=== PATIENT | male | born 1960 | race Caucasian/White ===

== ENCOUNTER 2016-10-09 23:15 | Inpatient (IN) | payer MEDICARE ==
[~2016-10-09] VITALS: Ht 180.3 cm; Wt 92.4 kg
[~2016-10-09 23:15] MED LIST: ALPR1TAB5 PO; ASPI-650 PO; AZIT500T77 PO; CEFD300C37 PO; CHOL100011 PO; CLOP75TA22 PO; DOCU250C2 PO; DOXY100C2 PO; FERR325C PO; FLORINEF PO; FLUT9.9S NAS; FURO-92 PO; FURO40TA6 PO; HCTZ PO; HYDR-3341 PO; HYDR10TA11 PO; HYDROCORTISONE CREAM; ISOS30TA PO; ISOS30TA8 PO; LISI-167 PO; LISI-170 PO; METH-356 PO; METO-95 PO; NITR0.4T PO; OSEL75CA PO; OXYGEN INH; PANT20TA3 PO; POLYETHYLENE GLYCOL PO; POTA20TA14 PO; POTA20TA6 PO; RANI300T PO; RANO500T2 PO; ROSU10TA PO; SENN8.6C2 PO; SPIR25TA3 PO; TEST100V IM; TRAZ100T15 PO; VENL100T PO; VENL150C PO; VENL75CA PO
[2016-10-10 00:30] VITALS: BP 111/62
[2016-10-10] MEDS ORDERED: LISI10TA2 PO (02:30)
[2016-10-10] MEDS ORDERED: SPIR25TA3 PO (02:30)
[2016-10-10] MEDS ORDERED: PLEASE ENTER HEIGHT AND WEIGHT MC SCH (02:30)
[2016-10-10] MEDS ORDERED: BISACODYL 10 MG SUPP PR PRN (02:30)
[2016-10-10] MEDS: HEPARIN 5,000 UNITS/ML, 1ML SQ SCH ×3 (02:30→17:27)
[2016-10-10] MEDS ORDERED: LABETALOL 5MG/ML 40ML VIAL IV PRN (02:30)
[2016-10-10] MEDS ORDERED: ASPI-496 PO (02:30)
[2016-10-10] MEDS ORDERED: OMEP20CA14 PO (02:30)
[2016-10-10] MEDS ORDERED: POLYETHYLENE GLYCOL 17 GM PACKET PO PRN (02:30)
[2016-10-10] MEDS ORDERED: ACETAMINOPHEN 325 MG TABLET PO PRN (02:30)
[2016-10-10] MEDS ORDERED: ATOR20TA9 PO (02:30)
[2016-10-10] MEDS ORDERED: DOCUSATE 100 MG CAPSULE PO PRN (02:30)
[2016-10-10] MEDS ORDERED: ALPR2TAB4 PO (02:30)
[2016-10-10] MEDS ORDERED: DOXY100V9 PO (02:30)
[2016-10-10] MEDS ORDERED: TRAZODONE 50MG TABLET PO PRN (02:30)
[2016-10-10] MEDS ORDERED: LIDO700A5 TD (04:20)
[2016-10-10] MEDS ORDERED: METH5TAB2 PO (04:20)
[2016-10-10 04:43] LABS: BLOOD UREA NITROGEN 10 mg/dL (7-18)
[2016-10-10 04:50] LABS: ASPARTATE AMINO TRANSFERASE 18 U/L (15-37)
[2016-10-10 04:51] LABS: IS PT STATUS REG ER OR PRE ER? NO
[2016-10-10] MEDS: ALBUTEROL SULFATE 2.5 MG/3 ML NPPB SCH ×4 (05:00→19:43)
[2016-10-10] MEDS ORDERED: VANCOMYCIN PER PHARMACY MC PRN (06:00)
[2016-10-10] MEDS ORDERED: PHARMACOKINETIC MONITORING MC PRN (06:30)
[2016-10-10] MEDS ORDERED: VANCOMYCIN 1,500 MG in SODIUM CHLORIDE 0.9% 250 ML IV ONE (07:00)
[2016-10-10 07:30] VITALS: BP 110/65
[2016-10-10 07:57] LABS: IS PT STATUS REG ER OR PRE ER? NO
[2016-10-10] MEDS: FUROSEMIDE 20 MG/2 ML IV SCH ×2 (09:34→17:21)
[2016-10-10] MEDS: LISINOPRIL 10 MG TABLET PO SCH (09:36)
[2016-10-10] MEDS: ASPIRIN 81 MG TABLET EC PO SCH (09:36)
[2016-10-10] MEDS: VENLAFAXINE 75 MG CAP ER PO SCH (09:36)
[2016-10-10] MEDS: METOPROLOL SUCCINATE 100 MG TAB.ER.24H PO SCH (09:36)
[2016-10-10] MEDS: CLOPIDOGREL 75 MG TABLET PO SCH (09:36)
[2016-10-10] MEDS: SPIRONOLACTONE 25 MG TABLET PO SCH (09:36)
[2016-10-10] MEDS: ISOSORBIDE MONONITRATE ER 30 MG TABLET PO SCH (09:37)
[2016-10-10] MEDS: RANOLAZINE 500 MG TAB.ER.12H PO SCH ×2 (09:37→21:07)
[2016-10-10] MEDS: CEFEPIME 2 GM in DEXTROSE 5% 100 ML IV SCH ×2 (09:38→17:27)
[2016-10-10] MEDS ORDERED: PRAZ2CAP2 PO (11:13)
[2016-10-10 14:26] VITALS: BP 129/74
[2016-10-10] MEDS ORDERED: SYMBICORT INH PRN (14:30)
[2016-10-10] MEDS: FLUTICASONE NASAL SPRAY 16GM NAS PRN ×2 (14:47→21:07)
[2016-10-10 19:59] VITALS: BP 135/71
[2016-10-10] MEDS ORDERED: LIDODERM 5% PATCH TD SCH (20:00)
[2016-10-10] MEDS ORDERED: TRAZODONE 100MG TABLET PO SCH (21:00)
[2016-10-10] MEDS ORDERED: METHADONE 10 MG TABLET PO SCH (21:30)
[2016-10-10] MEDS ORDERED: ALPRazolam 1MG TABLET PO SCH (21:30)
[2016-10-11] MEDS: HEPARIN 5,000 UNITS/ML, 1ML SQ SCH ×2 (01:26→09:31)
[2016-10-11] MEDS: CEFEPIME 2 GM in DEXTROSE 5% 100 ML IV SCH ×2 (01:30→09:31)
[2016-10-11 01:55] VITALS: BP 124/76
[2016-10-11 05:33] LABS: BLOOD UREA NITROGEN 10 mg/dL (7-18)
[2016-10-11] MEDS ORDERED: VANCOMYCIN 1,900 MG in SODIUM CHLORIDE 0.9% 250 ML IV SCH (06:00)
[2016-10-11] MEDS: ALBUTEROL SULFATE 2.5 MG/3 ML NPPB SCH ×2 (06:50→15:00)
[2016-10-11 07:25] VITALS: BP 98/61
[2016-10-11 09:11] VITALS: BP 124/67
[2016-10-11] MEDS: FUROSEMIDE 20 MG/2 ML IV SCH (09:12)
[2016-10-11] MEDS: SPIRONOLACTONE 25 MG TABLET PO SCH (09:16)
[2016-10-11] MEDS: ASPIRIN 81 MG TABLET EC PO SCH (09:21)
[2016-10-11] MEDS: VENLAFAXINE 75 MG CAP ER PO SCH (09:21)
[2016-10-11] MEDS: RANOLAZINE 500 MG TAB.ER.12H PO SCH (09:22)
[2016-10-11] MEDS: ISOSORBIDE MONONITRATE ER 30 MG TABLET PO SCH (09:22)
[2016-10-11] MEDS: LISINOPRIL 10 MG TABLET PO SCH (09:22)
[2016-10-11] MEDS: CLOPIDOGREL 75 MG TABLET PO SCH (09:22)
[2016-10-11] MEDS: METOPROLOL SUCCINATE 100 MG TAB.ER.24H PO SCH (09:23)
[2016-10-11 13:35] VITALS: BP 97/59
[2016-10-11] MEDS ORDERED: ALBU2.5V NPPB (13:47)
[2016-10-11] MEDS ORDERED: LEVO500T8 PO (13:55)
== END 2016-10-11 15:42 | disposition home or self-care (01) | DRG 190 ==
LOC: 5SO 10-10 00:43 → DCLOUNGE 10-11 15:19
PROVIDERS: ADMIT Internal Medicine; ATTEND Internal Medicine
DX: J44.0 Chronic obstructive pulmonary disease with (acute) lower respiratory infection (principal); J18.9 Pneumonia, unspecified organism; H33.20 Serous retinal detachment, unspecified eye; J81.1 Chronic pulmonary edema; E78.5 Hyperlipidemia, unspecified; I25.5 Ischemic cardiomyopathy; H26.9 Unspecified cataract; I25.10 Atherosclerotic heart disease of native coronary artery without angina pectoris; I25.2 Old myocardial infarction; Z87.891 Personal history of nicotine dependence; Z90.81 Acquired absence of spleen; Z95.5 Presence of coronary angioplasty implant and graft; Z99.81 Dependence on supplemental oxygen; Z90.49 Acquired absence of other specified parts of digestive tract; Z79.02 Long term (current) use of antithrombotics/antiplatelets; Z79.899 Other long term (current) drug therapy; Z79.82 Long term (current) use of aspirin; Z82.49 Family history of ischemic heart disease and other diseases of the circulatory system; Z87.820 Personal history of traumatic brain injury; Z88.0 Allergy status to penicillin; Z88.2 Allergy status to sulfonamides; Z88.5 Allergy status to narcotic agent
CPT/HCPCS: 36415; 71010; 80048; 80053; 81003; 83735; 83880; 84439; 84443; 84484; 85025; 85610; 93005; 94640; J1644; J3370; J7613; J1940; J7050

== ENCOUNTER 2019-01-25 13:08 | Emergency (ER) | payer MEDICARE ==
[~2019-01-25] VITALS: Ht 180.3 cm; Wt 114.7 kg
[2019-01-25 16:24] VITALS: BP 158/92
== END 2019-01-25 16:39 | disposition home or self-care (01) ==
LOC: ED 16:15
DX: J41.1 Mucopurulent chronic bronchitis (principal); I10 Essential (primary) hypertension; I25.2 Old myocardial infarction; I25.10 Atherosclerotic heart disease of native coronary artery without angina pectoris; Z87.891 Personal history of nicotine dependence; Z90.81 Acquired absence of spleen
CPT/HCPCS: 36415; 71045; 80053; 83880; 84484; 85025; 85610; 93005; 99284; J7512

== ENCOUNTER 2019-02-23 04:25 | Inpatient (IN) | payer MEDICARE ==
[~2019-02-23] VITALS: Ht 180.3 cm; Wt 116.2 kg
[~2019-02-23 04:25] MED LIST changes: +ALBU2.5V NPPB; +ALPR2TAB4 PO; +ASPI-496 PO; +ATOR20TA37 PO; +AZIT500T5 PO; -AZIT500T77 PO; -CLOP75TA22 PO; +CLOP75TA52 PO; -DOCU250C2 PO; +DOCU250C9 PO; +DOXY100V9 PO; +HYDR-3059 PO; -HYDR10TA11 PO; +LEVO500T8 PO; +LIDO700A5 TD; +LISI10TA2 PO; -METH-356 PO; +METH10TA2 PO; +METH5TAB2 PO; -NITR0.4T PO; +NITR0.4T41 PO; +OMEP20CA14 PO; -OSEL75CA PO; +OSEL75CA26 PO; +PRAZ2CAP2 PO; -ROSU10TA PO; +ROSU10TA2 PO; -SPIR25TA3 PO; +SPIR25TA5 PO; +TRAZ-137 PO; -TRAZ100T15 PO
--- NOTE | 2019-02-23 04:37 | NUR ---
PT C/O CHEST PRESSURE THAT WOKE HIM FROM SLEEP. PT WAS SEEN AT HIS [facility] YESTERDAY AND WAS GIVEN A NEW INHALER AND PREDNISONE. PT REPORTS PAIN RELIEVED WITH NITRO. Addendum: 02/23/19 at 0641 by ALYCIA Amendment undone in EDM - 02/23/19 at 0641 by ALYCIA MD NOTIFIED.
[2019-02-23] MEDS ORDERED: ONDANSETRON 2MG/ML, 2ML ONE (04:48)
[2019-02-23] MEDS ORDERED: NITROGLYCERIN OINT 2%, 1GM TP ONE ×2 (04:48→05:00)
[2019-02-23] MEDS ORDERED: MORPHINE SULFATE 4 MG/ML, 1ML ONE ×2 (04:49→05:40)
[2019-02-23] MEDS: MORPHINE SULFATE 4 MG/ML, 1ML IVPush PRN ×2 (04:56→05:45)
[2019-02-23] MEDS ORDERED: hydrALAzine 20 MG/ML, 1ML IV ONE (05:00)
[2019-02-23] MEDS ORDERED: SODIUM CHLORIDE FLUSH 10ML SYR IVF ONE (05:00)
[2019-02-23] MEDS ORDERED: ONDANSETRON 2MG/ML, 2ML IVPush ONE (05:00)
--- NOTE | 2019-02-23 05:25 | NUR ---
AT BEDSIDE TO ASSESS PATIENT.
[2019-02-23 05:34] LABS: BASOPHILS % (AUTO) 0 % (0-1); EOSINOPHILS # (AUTO) 0.17 x10^3/uL (0-0.4); EOSINOPHILS % (AUTO) 1 % (1-7); LYMPHOCYTES # (AUTO) 1.77 x10^3/uL (1-3.4); LYMPHOCYTES % (AUTO) 11 % (22-44); MD NO; MEAN CORPUSCULAR HEMOGLOBIN 29.4 pg (27.5-34.5); MEAN CORPUSCULAR VOLUME 91.9 fL (81-97); MEAN PLATELET VOLUME 9.7 fL (7.4-10.4); MONOCYTES # (AUTO) 0.37 x10^3/uL (0.2-0.8); MONOCYTES % (AUTO) 2 % (2-9); NEUTROPHILS # (AUTO) 14.05 x10^3/uL (1.8-6.8); NEUTROPHILS % (AUTO) 86 % (42-75); PLATELET COUNT 360 x10^3/uL (130-400); RED BLOOD COUNT 4.72 x10^6/uL (4.38-5.82); RED CELL DISTRIBUTION WIDTH 17.8 % (9.4-14.8)
[2019-02-23 05:48] LABS: ALANINE AMINOTRANSFERASE 38 U/L (12-78); ALBUMIN 3.3 g/dL (3.4-5.0); ANION GAP 10 mmol/L (5-15); CALCIUM 8.8 mg/dL (8.5-10.1); CHLORIDE 100 mmol/L (98-107); CREATININE 1.66 mg/dL (0.7-1.3)
[2019-02-23 05:52] LABS: ALKALINE PHOSPHATASE 94 U/L (45-117); BILIRUBIN,TOTAL 0.3 mg/dL (0.2-1.0); TOTAL PROTEIN 7.5 g/dL (6.4-8.2); TROPONIN I < 0.015 ng/mL (0.000-0.045)
[2019-02-23 05:57] LABS: ACETONE, SERUM Negative (Negative)
[2019-02-23 05:58] LABS: INTERNATIONAL NORMALIZED RATIO 0.9 (0.93-1.1); PROTHROMBIN TIME 9.5 Seconds (9.6-11.5)
[2019-02-23] MEDS ORDERED: SODIUM CHLORIDE 0.9% 1,000ML IVBOLUS ONE ×2 (06:00→07:30)
[2019-02-23] MEDS ORDERED: INSULIN REGULAR 100 UNITS/ML, 3ML VIAL SQ-INSULIN ONE (06:00)
[2019-02-23] MEDS ORDERED: MAGNESIUM SULFATE PMX 2GM/50ML 50 ML IV ONE ×2 (06:00→13:00)
[2019-02-23] MEDS ORDERED: MAGNESIUM SULFATE PMX 2GM/50ML 50 ML ONE (06:10)
[2019-02-23] MEDS ORDERED: INSULIN SINGLE DOSE, ER SQ-INSULIN ONE (06:11)
--- NOTE | 2019-02-23 06:16 | NUR ---
PT TO CT SCAN
[2019-02-23] MEDS ORDERED: OMNIPAQUE 350 MG/ML, 100ML BOTTLE ONE (06:27)
[2019-02-23 06:34] LABS: HEMOGLOBIN A1C 7.1 % (4.2-6.3)
--- NOTE | 2019-02-23 06:40 | NUR ---
PT RETURNED FROM CT SCAN. C/O INCREASE IN SHARP LEFT SIDED CHEST PAIN. Addendum: 02/23/19 at 0641 by ALYCIA MD NOTIFIED.
--- NOTE | 2019-02-23 06:59 | NUR ---
REPORT GIVEN TO KYM ABAD
[2019-02-23] MEDS ORDERED: CEFTRIAXONE PMX 1GM/50ML 50 ML ONE (07:09)
--- NOTE | 2019-02-23 07:23 | NUR ---
REPORT FROM AMADO MEJÍA. PT RESTING, NAD. BP IMPROVED, VS UPDATED IN COMPUTER. CALL LIGHT WITHIN REACH.
[2019-02-23] MEDS ORDERED: CEFTRIAXONE 1,000 MG in DEXTROSE 5% 50 ML IVPB ONE (07:30)
[2019-02-23] MEDS ORDERED: CEFTRIAXONE PMX 1GM/50ML 50 ML IV ONE (07:30)
--- NOTE | 2019-02-23 08:06 | NUR ---
REPORT TO SHANA MEJÍA, PT READY FOR TRANSPORT TO FLOOR.
[2019-02-23 08:44] VITALS: BP 142/82
[2019-02-23] MEDS ORDERED: PRED20TA PO (10:14)
[2019-02-23] MEDS ORDERED: OMEP20TA9 PO (10:16)
[2019-02-23] MEDS ORDERED: TRAZ-96 PO (10:18)
[2019-02-23] MEDS ORDERED: TIOT18CA INH (10:18)
[2019-02-23] MEDS ORDERED: VENL75CA PO (10:18)
[2019-02-23] MEDS ORDERED: HEPARIN 5,000 UNITS/ML, 1ML SQ SCH (13:00)
[2019-02-23] MEDS ORDERED: hydrALAzine 20 MG/ML, 1ML IVPush PRN (13:00)
[2019-02-23] MEDS ORDERED: TEMPLATE NON-FORMULARY MED. ([Oxygen] 3 L) INH SCH (13:00)
[2019-02-23] MEDS ORDERED: ONDANSETRON 2MG/ML, 2ML IVPush PRN (13:00)
[2019-02-23] MEDS ORDERED: NITROGLYCERIN SINGLE TAB 0.4 MG SL SCH (13:00)
[2019-02-23] MEDS ORDERED: TRAZODONE 50MG TABLET PO SCH (13:00)
[2019-02-23] MEDS ORDERED: VENLAFAXINE 75 MG CAP ER PO SCH (13:00)
[2019-02-23] MEDS ORDERED: PROMETHAZINE 25 MG/ML, 1ML IM PRN (13:00)
[2019-02-23] MEDS ORDERED: FLUTICASONE NASAL SPRAY 16GM NAS PRN ×2 (13:00→17:29)
[2019-02-23] MEDS ORDERED: POLYETHYLENE GLYCOL 17 GM PACKET PO PRN (13:00)
[2019-02-23] MEDS ORDERED: DOCUSATE 100 MG CAPSULE PO PRN (13:00)
[2019-02-23] MEDS ORDERED: BISACODYL 10 MG SUPP PR PRN (13:00)
[2019-02-23] MEDS ORDERED: ONDANSETRON ODT 4 MG PO PRN (13:00)
[2019-02-23] MEDS ORDERED: ATORVASTATIN 20 MG TABLET PO SCH (13:00)
[2019-02-23] MEDS ORDERED: ACETAMINOPHEN 325 MG TABLET PO PRN (13:00)
[2019-02-23] MEDS ORDERED: ALBUTEROL/IPRATROPIUM 2.5MG/0.5MG, 3 ML ONE (13:51)
[2019-02-23 13:55] LABS: FREE T4 (FREE THYROXINE) 0.73 ng/dL (0.76-1.46)
[2019-02-23] MEDS: SPIRONOLACTONE 25 MG TABLET PO SCH (14:32)
[2019-02-23] MEDS: CLOPIDOGREL 75 MG TABLET PO SCH (14:32)
[2019-02-23] MEDS: methylPREDNISolone SOD SUCC 125 MG/2 ML IVPush SCH ×2 (14:32→20:42)
[2019-02-23] MEDS: METOPROLOL SUCCINATE 100 MG TAB.ER.24H PO SCH (14:32)
[2019-02-23] MEDS: LISINOPRIL 10 MG TABLET PO SCH (14:32)
[2019-02-23] MEDS: DOXYCYCLINE 100MG TABLET PO SCH (14:32)
[2019-02-23] MEDS: ASPIRIN 81 MG TABLET EC PO SCH (14:32)
[2019-02-23] MEDS: ISOSORBIDE MONONITRATE ER 30 MG TABLET PO SCH (14:32)
[2019-02-23 14:57] VITALS: BP 133/75
[2019-02-23 15:01] LABS: HEMOGLOBIN A1C 7.1 % (4.2-6.3)
[2019-02-23] MEDS ORDERED: HEPARIN 25,000 UNITS/500ML PMX 500 ML IV PRN (16:00)
[2019-02-23] MEDS ORDERED: HEPARIN 5,000 UNITS/ML, 1ML IV ONE (16:00)
[2019-02-23] MEDS ORDERED: HEPARIN 5,000 UNITS/ML, 1ML IV PRN (16:00)
[2019-02-23 18:32] LABS: MICROSCOPIC NOT IND
[2019-02-23 18:36] LABS: CULTURE INDICATED? NO
[2019-02-23] MEDS: ALBUTEROL/IPRATROPIUM 2.5MG/0.5MG, 3 ML NPPB SCH (19:25)
[2019-02-23 19:32] VITALS: BP 117/71
[2019-02-23] MEDS: VENLAFAXINE 75MG TABLET PO SCH (20:42)
[2019-02-23] MEDS: TRAZODONE 50MG TABLET PO SCH (20:43)
[2019-02-23] MEDS: ALPRAZOLAM 2 MG PO SCH (20:43)
[2019-02-23] MEDS: PANTOPROZOLE 40MG TABLET PO SCH (20:43)
[2019-02-23] MEDS: RANOLAZINE 500 MG TAB.ER.12H PO SCH (20:43)
[2019-02-23] MEDS: ATORVASTATIN 20 MG TABLET PO SCH (20:46)
[2019-02-24] VITALS (10 sets, daily range): BP systolic 107–186; BP diastolic 61–130
[2019-02-24] MEDS: DOXYCYCLINE 100MG TABLET PO SCH ×2 (03:16→08:56)
[2019-02-24] MEDS: methylPREDNISolone SOD SUCC 125 MG/2 ML IVPush SCH ×3 (03:16→21:06)
[2019-02-24] MEDS ORDERED: NITROGLYCERIN 0.4 MG BOTTLE (25 TABS) SL PRN (03:30)
[2019-02-24] MEDS ORDERED: NITROGLYCERIN 0.4 MG/SPRAY SL PRN (03:30)
[2019-02-24] MEDS: NITROGLYCERIN 0.4 MG BOTTLE (25 TABS) SL PRN ×5 (03:38→08:02)
[2019-02-24] MEDS: morphine SULFATE 10 MG/ML, 1ML IVPush PRN ×2 (05:29→07:49)
[2019-02-24 05:37] LABS: ALBUMIN 3.5 g/dL (3.4-5.0); ANION GAP 9 mmol/L (5-15); CALCIUM 8.9 mg/dL (8.5-10.1); CHLORIDE 102 mmol/L (98-107)
[2019-02-24 05:41] LABS: MEAN CORPUSCULAR HEMOGLOBIN 29.5 pg (27.5-34.5); MEAN CORPUSCULAR HGB CONC 32.1 g/dL (33.2-36.2); MEAN CORPUSCULAR VOLUME 91.9 fL (81-97); MEAN PLATELET VOLUME 9.4 fL (7.4-10.4); PLATELET COUNT 357 x10^3/uL (130-400); RED BLOOD COUNT 4.79 x10^6/uL (4.38-5.82); RED CELL DISTRIBUTION WIDTH 18.1 % (9.4-14.8)
[2019-02-24 05:43] LABS: ALANINE AMINOTRANSFERASE 37 U/L (12-78); ALKALINE PHOSPHATASE 89 U/L (45-117); BILIRUBIN,TOTAL 0.3 mg/dL (0.2-1.0); CHOLESTEROL, TOTAL 260 mg/dL (140-239); CREATININE 1.37 mg/dL (0.7-1.3); HDL CHOL % 25 % (26-37); HDL CHOLESTEROL (DIRECT) 65 mg/dL (40-60); LDL CHOLESTEROL,CALCULATED 161 mg/dL (54-169); LDL/HDL RATIO 2.5 (0.5-3.0); TOTAL PROTEIN 7.8 g/dL (6.4-8.2); TRIGLYCERIDES 171 mg/dL (50-200); TROPONIN I 0.612 ng/mL (0.000-0.045); VLDL CHOLESTEROL 34 mg/dL (0-25)
[2019-02-24] MEDS ORDERED: ASPIRIN 325 MG TABLET EC PO SCH (06:00)
[2019-02-24 06:32] LABS: BASOPHILS # (AUTO) 0.01 x10^3/uL (0-0.1); BASOPHILS % (AUTO) 0 % (0-1); EOSINOPHILS # (AUTO) 0.05 x10^3/uL (0-0.4); EOSINOPHILS % (AUTO) 0 % (1-7); LYMPHOCYTES # (AUTO) 2.82 x10^3/uL (1-3.4); LYMPHOCYTES % (AUTO) 11 % (22-44); MD SCAN; MONOCYTES # (AUTO) 0.14 x10^3/uL (0.2-0.8); MONOCYTES % (AUTO) 1 % (2-9); NEUTROPHILS % (AUTO) 88 % (42-75)
[2019-02-24] MEDS: ALBUTEROL/IPRATROPIUM 2.5MG/0.5MG, 3 ML NPPB SCH ×4 (06:52→20:00)
[2019-02-24] MEDS: RANOLAZINE 500 MG TAB.ER.12H PO SCH ×2 (08:55→21:06)
[2019-02-24] MEDS: ASPIRIN 81 MG TABLET EC PO SCH ×2 (08:55→12:00)
[2019-02-24] MEDS: ISOSORBIDE MONONITRATE ER 30 MG TABLET PO SCH (08:55)
[2019-02-24] MEDS: VENLAFAXINE 75 MG CAP ER PO SCH (08:56)
[2019-02-24] MEDS: METOPROLOL SUCCINATE 100 MG TAB.ER.24H PO SCH (08:56)
[2019-02-24] MEDS: CLOPIDOGREL 75 MG TABLET PO SCH (08:57)
[2019-02-24] MEDS: LISINOPRIL 10 MG TABLET PO SCH (08:57)
[2019-02-24] MEDS: ATORVASTATIN 20 MG TABLET PO SCH (08:59)
[2019-02-24] MEDS: PANTOPROZOLE 40MG TABLET PO SCH ×2 (08:59→21:07)
[2019-02-24] MEDS: SODIUM CHLORIDE 0.9% 1,000 ML IV SCH ×3 (09:00→19:56)
[2019-02-24] MEDS: SPIRONOLACTONE 25 MG TABLET PO SCH (09:00)
[2019-02-24 09:31] LABS: TROPONIN I 0.533 ng/mL (0.000-0.045)
[2019-02-24] MEDS ORDERED: MIDAZOLAM 1 MG/ML, 5ML ONE (10:32)
[2019-02-24] MEDS ORDERED: LIDOCAINE 2%, 20ML ONE (10:33)
[2019-02-24] MEDS ORDERED: BIVALIRUDIN 250 MG ONE ×2 (10:33→11:47)
[2019-02-24] MEDS ORDERED: NITROGLYCERIN 5 MG/ML, 10ML ONE (10:33)
[2019-02-24] MEDS ORDERED: FENTANYL PF 100 MCG/2ML ONE (10:33)
[2019-02-24] MEDS ORDERED: VERAPAMIL 2.5 MG/ML, 2ML ONE (10:33)
[2019-02-24] MEDS ORDERED: DIPHENHYDRAMINE 50 MG/ML, 1ML ONE (10:33)
[2019-02-24] MEDS ORDERED: HEPARIN 1,000 UNITS/ML, 10ML ONE (10:33)
[2019-02-24] MEDS ORDERED: TICAGRELOR 90 MG TABLET ONE (10:33)
[2019-02-24] MEDS ORDERED: methylPREDNISolone SOD SUCC 125 MG/2 ML ONE (10:54)
[2019-02-24] MEDS ORDERED: BIVALIRUDIN 250 MG in SODIUM CHLORIDE 0.9% 50 ML IV SCH (11:46)
[2019-02-24] MEDS ORDERED: CLOPIDOGREL 75 MG TABLET ONE (11:47)
[2019-02-24] MEDS: ALPRAZOLAM 2 MG PO SCH (21:00)
[2019-02-24] MEDS: TRAZODONE 50MG TABLET PO SCH (21:07)
[2019-02-24] MEDS: VENLAFAXINE 75MG TABLET PO SCH (21:11)
[2019-02-25] VITALS (10 sets, daily range): BP systolic 116–193; BP diastolic 61–121
[2019-02-25] MEDS: DOXYCYCLINE 100MG TABLET PO SCH ×3 (01:12→20:53)
[2019-02-25] MEDS: methylPREDNISolone SOD SUCC 125 MG/2 ML IVPush SCH ×2 (01:35→08:23)
[2019-02-25] MEDS: SODIUM CHLORIDE 0.9% 1,000 ML IV SCH ×2 (03:19)
[2019-02-25 04:53] LABS: MEAN CORPUSCULAR HEMOGLOBIN 29.6 pg (27.5-34.5); MEAN CORPUSCULAR HGB CONC 32.1 g/dL (33.2-36.2); MEAN CORPUSCULAR VOLUME 92.1 fL (81-97); MEAN PLATELET VOLUME 9.4 fL (7.4-10.4); PLATELET COUNT 353 x10^3/uL (130-400); RED BLOOD COUNT 4.61 x10^6/uL (4.38-5.82); RED CELL DISTRIBUTION WIDTH 18.3 % (9.4-14.8)
[2019-02-25 04:59] LABS: ANION GAP 5 mmol/L (5-15); CALCIUM 8.9 mg/dL (8.5-10.1); CHLORIDE 105 mmol/L (98-107)
[2019-02-25 05:02] LABS: CREATININE 1.35 mg/dL (0.7-1.3)
[2019-02-25] MEDS: morphine SULFATE 10 MG/ML, 1ML IVPush PRN (05:24)
[2019-02-25 05:50] LABS: MD YES
[2019-02-25 05:51] LABS: BAND#(MANUAL) 1.96 x10^3/uL; BANDS%(MANUAL) 7 % (0-7); LYMPH#(MANUAL) 2.24 x10^3/uL (1-3.4); LYMPHS% (MANUAL) 8 % (22-44); METAMYELOCYTES# (MANUAL) 0.28 x10^3/uL (0-0); METAMYELOCYTES% (MANUAL) 1 % (0-1); MONOS#(MANUAL) 0.28 x10^3/uL (0.3-2.7); MONOS% (MANUAL) 1 % (2-9); MYELOCYTES# (MANUAL) 0.28 x10^3/uL (0-0); MYELOCYTES% (MANUAL) 1 % (0-0); SEG#(MANUAL) 22.96 x10^3/uL (1.8-6.8); SEGS% (MANUAL) 82 % (42-75)
[2019-02-25 05:52] LABS: <PLATELET ESTIMATE> ADEQUATE; ANISOCYTOSIS 1+; GIANT PLATELETS 1+; LARGE PLATELETS 1+
[2019-02-25] MEDS: NITROGLYCERIN 0.4 MG BOTTLE (25 TABS) SL PRN ×3 (05:56→06:48)
[2019-02-25 05:57] LABS: POLYCHROMASIA 1+
[2019-02-25] MEDS: ALBUTEROL/IPRATROPIUM 2.5MG/0.5MG, 3 ML NPPB SCH ×4 (08:00→22:23)
[2019-02-25] MEDS: CLOPIDOGREL 75 MG TABLET PO SCH (08:23)
[2019-02-25] MEDS: ATORVASTATIN 20 MG TABLET PO SCH (08:23)
[2019-02-25] MEDS: PANTOPROZOLE 40MG TABLET PO SCH ×2 (08:23→20:52)
[2019-02-25] MEDS: LISINOPRIL 10 MG TABLET PO SCH (08:23)
[2019-02-25] MEDS: ISOSORBIDE MONONITRATE ER 30 MG TABLET PO SCH (08:23)
[2019-02-25] MEDS: RANOLAZINE 500 MG TAB.ER.12H PO SCH ×2 (08:24→20:52)
[2019-02-25] MEDS: VENLAFAXINE 75 MG CAP ER PO SCH (08:24)
[2019-02-25] MEDS: SPIRONOLACTONE 25 MG TABLET PO SCH (08:24)
[2019-02-25] MEDS: METOPROLOL SUCCINATE 100 MG TAB.ER.24H PO SCH (08:24)
[2019-02-25] MEDS: ASPIRIN 81 MG TABLET EC PO SCH ×2 (08:24→08:25)
[2019-02-25] MEDS: LISINOPRIL 20 MG TABLET PO SCH (20:52)
[2019-02-25] MEDS: TRAZODONE 50MG TABLET PO SCH (20:52)
[2019-02-25] MEDS: VENLAFAXINE 75MG TABLET PO SCH (20:52)
[2019-02-25] MEDS ORDERED: LISINOPRIL 10 MG TABLET PO SCH (21:00)
[2019-02-25] MEDS: ALPRAZOLAM 2 MG PO SCH (21:00)
[2019-02-26 00:42] VITALS: BP 122/75
[2019-02-26 05:19] LABS: ANION GAP 5 mmol/L (5-15); CALCIUM 8.5 mg/dL (8.5-10.1); CHLORIDE 102 mmol/L (98-107)
[2019-02-26 05:20] LABS: CREATININE 1.59 mg/dL (0.7-1.3)
[2019-02-26] MEDS: ALBUTEROL/IPRATROPIUM 2.5MG/0.5MG, 3 ML NPPB SCH ×2 (07:00→10:39)
[2019-02-26 07:14] VITALS: BP 148/83
[2019-02-26] MEDS: RANOLAZINE 500 MG TAB.ER.12H PO SCH (08:01)
[2019-02-26] MEDS: ISOSORBIDE MONONITRATE ER 30 MG TABLET PO SCH (08:02)
[2019-02-26] MEDS: DOXYCYCLINE 100MG TABLET PO SCH (08:02)
[2019-02-26] MEDS: PANTOPROZOLE 40MG TABLET PO SCH (08:02)
[2019-02-26] MEDS: VENLAFAXINE 75 MG CAP ER PO SCH (08:02)
[2019-02-26] MEDS: ASPIRIN 81 MG TABLET EC PO SCH ×2 (08:02→08:03)
[2019-02-26] MEDS: CLOPIDOGREL 75 MG TABLET PO SCH (08:02)
[2019-02-26] MEDS: METOPROLOL SUCCINATE 100 MG TAB.ER.24H PO SCH (08:03)
[2019-02-26] MEDS: ATORVASTATIN 20 MG TABLET PO SCH (08:03)
[2019-02-26] MEDS: LISINOPRIL 20 MG TABLET PO SCH (09:00)
[2019-02-26] MEDS ORDERED: LISI10TA2 PO ×2 (10:54)
[2019-02-26] MEDS ORDERED: PRED5TAB PO (10:55)
[2019-02-26] MEDS ORDERED: METF500T PO ×2 (10:57)
[2019-02-26] MEDS ORDERED: ATOR-2 PO (11:01)
[2019-02-26] MEDS ORDERED: DOXY100T10 PO (11:04)
[2019-03-18] MEDS ORDERED: HYDR-3342 PO (11:23)
[2019-03-18] MEDS ORDERED: POTA20TA6 PO (11:23)
[2019-03-18] MEDS ORDERED: INSU100I11 SQ-INSULIN (11:23)
== END 2019-02-26 13:15 | disposition home or self-care (01) | DRG 246 ==
LOC: ED 06:15 → EDIP 07:14 → 5SO 08:18 → DCLOUNGE 02-26 12:38
PROVIDERS: ADMIT Family Medicine; ATTEND Family Medicine
PROC: 027034Z Dilation of Coronary Artery, One Artery with Drug-eluting Intraluminal Device, Percutaneous Approach (ICD-10-PCS; principal; 2019-02-24)
PROC: B211YZZ Fluoroscopy of Multiple Coronary Arteries using Other Contrast (ICD-10-PCS; 2019-02-24)
PROC: B215YZZ Fluoroscopy of Left Heart using Other Contrast (ICD-10-PCS; 2019-02-24)
PROC: 4A023N7 Measurement of Cardiac Sampling and Pressure, Left Heart, Percutaneous Approach (ICD-10-PCS; 2019-02-24)
DX: T82.855A Stenosis of coronary artery stent, initial encounter (principal); I21.4 Non-ST elevation (NSTEMI) myocardial infarction; I50.43 Acute on chronic combined systolic (congestive) and diastolic (congestive) heart failure; N17.0 Acute kidney failure with tubular necrosis; J44.1 Chronic obstructive pulmonary disease with (acute) exacerbation; I25.110 Atherosclerotic heart disease of native coronary artery with unstable angina pectoris; I13.0 Hypertensive heart and chronic kidney disease with heart failure and stage 1 through stage 4 chronic kidney disease, or unspecified chronic kidney disease; J96.10 Chronic respiratory failure, unspecified whether with hypoxia or hypercapnia; J44.0 Chronic obstructive pulmonary disease with (acute) lower respiratory infection; Y83.1 Surgical operation with implant of artificial internal device as the cause of abnormal reaction of the patient, or of later complication, without mention of misadventure at the time of the procedure; N18.9 Chronic kidney disease, unspecified; E11.22 Type 2 diabetes mellitus with diabetic chronic kidney disease; I25.5 Ischemic cardiomyopathy; E78.5 Hyperlipidemia, unspecified; G47.33 Obstructive sleep apnea (adult) (pediatric); J20.9 Acute bronchitis, unspecified; E83.42 Hypomagnesemia; I35.8 Other nonrheumatic aortic valve disorders; F41.9 Anxiety disorder, unspecified; E11.65 Type 2 diabetes mellitus with hyperglycemia; E66.9 Obesity, unspecified; Z68.35 Body mass index [BMI] 35.0-35.9, adult; Z88.0 Allergy status to penicillin; Z88.2 Allergy status to sulfonamides; Y92.89 Other specified places as the place of occurrence of the external cause; Z88.8 Allergy status to other drugs, medicaments and biological substances; Z88.5 Allergy status to narcotic agent; Z91.013 Allergy to seafood; Z87.891 Personal history of nicotine dependence; I25.2 Old myocardial infarction; Z90.81 Acquired absence of spleen; Z95.5 Presence of coronary angioplasty implant and graft; Z90.49 Acquired absence of other specified parts of digestive tract; Z90.89 Acquired absence of other organs; Z99.81 Dependence on supplemental oxygen; Z87.820 Personal history of traumatic brain injury; Z79.82 Long term (current) use of aspirin; Z79.899 Other long term (current) drug therapy
CPT/HCPCS: 36415; 71045; 71275; 80048; 80053; 80061; 81003; 82010; 82800; 83036; 83605; 83735; 83880; 84145; 84439; 84443; 84484; 85025; 85520; 85610; 87040; 87070; 87205; 93005; 93306; 93458; 94640; 99156; 99157; 99291; C1769; C1894; C9600; G0378; J0583; J0696; J1644; J2250; J2405; J3010; J7620; Q9967; C1725; C1874; C1887; J0360; J1200; J1815; J2270; J2930; J3475; J7030; J7512

== ENCOUNTER 2019-08-23 14:58 | Inpatient (IN) | payer MEDICAID, MEDICARE, OTHER ==
[~2019-08-23] VITALS: Ht 180.3 cm; Wt 113.4 kg
[~2019-08-23 14:58] MED LIST changes: +ATOR-2 PO; +AZIT500T10 PO; -AZIT500T5 PO; +DOXY100T23 PO; +HYDR-3342 PO; +INSU100I11 SQ-INSULIN; +METF500T PO; -OMEP20CA14 PO; +OMEP20CA20 PO; +OMEP20TA9 PO; +PRED20TA PO; +PRED5TAB PO; +TIOT18CA INH; -TRAZ-137 PO; +TRAZ-175 PO; +TRAZ-96 PO
--- NOTE | 2019-08-23 15:28 | NUR ---
PT TO ROOM 33 PER WHEELCHAIR FROM MD OFFICE. PT STATES "THE DOCTOR SAID MY BLOOD PRESSURE WAS TO LOW, AND I'VE HAD THIS COUGH FOR 3 WEEKS, I JUST DON'T FEEL GOOD" PT HAS HISTORY OF COPD AND WEARS OXYGEN 3L AT HOME. PT HAS HAD A STENT. PT IS A/O X3 WITH OCCASIONAL STRONG COUGH. PLACED ON MONITOR, AWAITING
[2019-08-23] MEDS ORDERED: SODIUM CHLORIDE 0.9% 1,000ML IVBOLUS ONE (16:00)
[2019-08-23] MEDS ORDERED: ALBUTEROL/IPRATROPIUM 2.5MG/0.5MG, 3 ML ONE (16:01)
[2019-08-23 16:11] LABS: BASOPHILS # (AUTO) 0.12 x10^3/uL (0-0.1); BASOPHILS % (AUTO) 1 % (0-1); EOSINOPHILS # (AUTO) 0.22 x10^3/uL (0-0.4); EOSINOPHILS % (AUTO) 2 % (1-7); LYMPHOCYTES # (AUTO) 3.26 x10^3/uL (1-3.4); LYMPHOCYTES % (AUTO) 25 % (22-44); MD NO; MEAN CORPUSCULAR HEMOGLOBIN 29.1 pg (27.5-34.5); MEAN CORPUSCULAR HGB CONC 33.1 g/dL (33.2-36.2); MEAN CORPUSCULAR VOLUME 87.8 fL (81-97); MEAN PLATELET VOLUME 9.8 fL (7.4-10.4); MONOCYTES # (AUTO) 0.87 x10^3/uL (0.2-0.8); MONOCYTES % (AUTO) 7 % (2-9); NEUTROPHILS # (AUTO) 8.76 x10^3/uL (1.8-6.8); NEUTROPHILS % (AUTO) 66 % (42-75); PLATELET COUNT 285 x10^3/uL (130-400); RED BLOOD COUNT 4.56 x10^6/uL (4.38-5.82); RED CELL DISTRIBUTION WIDTH 16.2 % (9.4-14.8)
[2019-08-23 16:23] LABS: ALANINE AMINOTRANSFERASE 34 U/L (12-78); ALBUMIN 3.3 g/dL (3.4-5.0); ANION GAP 6 mmol/L (5-15); CALCIUM 8.6 mg/dL (8.5-10.1); CHLORIDE 105 mmol/L (98-107); CREATININE 1.77 mg/dL (0.7-1.3)
[2019-08-23 16:27] LABS: ALKALINE PHOSPHATASE 93 U/L (45-117); BILIRUBIN,TOTAL 0.3 mg/dL (0.2-1.0); TOTAL PROTEIN 7.4 g/dL (6.4-8.2); TROPONIN I < 0.015 ng/mL (0.000-0.045)
--- NOTE | 2019-08-23 16:30 | NUR ---
PT RESTING. NO COMPLAINTS OR NEEDS AT THIS TIME.
[2019-08-23] MEDS ORDERED: SODIUM CHLORIDE FLUSH 10ML SYR IVF ONE (17:00)
--- NOTE | 2019-08-23 17:30 | NUR ---
PT RESTING IN ROOM. AWAITING TEST RESULTS. FAMILY AT BEDSIDE.
[2019-08-23] MEDS ORDERED: OMNIPAQUE 350 MG/ML, 100ML BOTTLE ONE (17:32)
--- NOTE | 2019-08-23 18:30 | NUR ---
CT COMPLETE. FAMILY QUESTIONING IF MEDICATIONS WILL BE GIVEN IN HOSPITAL. RN ADDRESSES ALL CONCERNS. AWAITING RESULTS. PT STABLE.
--- NOTE | 2019-08-23 19:19 | NUR ---
PT RESTING COMFORTABLY AT THIS TIME. PT EXPRESSES NO WANTS OR NEEDS. PT READ RESULTS AND IMPRESSION FROM CT. AWAITING EVAL AND ORDERS FROM ADMITTING MD. CALL LIGHT IN REACH PT ENCOURAGED TO CALL FOR ANY NEEDS.
--- NOTE | 2019-08-23 20:04 | NUR ---
REPORT TO FLOOR. LAURENCE MEJÍA WILL CONTACT ADMITTING DOCTOR FOR ORDERS. PT STABLE, BLOOD PRESSURE GREATER THAN 100. PT HAS NO NEEDS OR CONCERNS.
[2019-08-23 20:58] VITALS: BP 122/73
[2019-08-23] MEDS ORDERED: ACETAMINOPHEN 325 MG TABLET PO PRN (21:00)
[2019-08-23] MEDS ORDERED: morphine SULFATE 10 MG/ML, 1ML IVPush PRN (21:00)
[2019-08-23] MEDS ORDERED: ONDANSETRON 2MG/ML, 2ML IVPush PRN (21:00)
[2019-08-23] MEDS ORDERED: INSULIN GLARGINE 100 UNITS/ML, PEN SQ-INSULIN SCH (21:00)
[2019-08-23] MEDS: HEPARIN 5,000 UNITS/ML, 1ML SQ SCH (22:25)
[2019-08-23] MEDS: OMEPRAZOLE 20 MG CAPSULE.DR PO SCH (22:25)
[2019-08-23] MEDS: ATORVASTATIN 40 MG TABLET PO SCH (22:26)
[2019-08-23] MEDS: RANOLAZINE 500 MG TAB.ER.12H PO SCH (22:26)
[2019-08-23 22:43] LABS: TROPONIN I < 0.015 ng/mL (0.000-0.045)
[2019-08-23] MEDS: INSULIN LISPRO 100 UNITS/ML, PEN SQ-INSULIN SCH (23:27)
[2019-08-23] MEDS ORDERED: ALBUTEROL SULFATE 2.5 MG/3 ML NPPB PRN (23:30)
[2019-08-24 02:00] VITALS: BP 112/68
[2019-08-24 04:47] VITALS: BP 112/68
[2019-08-24] MEDS: HEPARIN 5,000 UNITS/ML, 1ML SQ SCH ×3 (04:50→21:49)
[2019-08-24 05:05] LABS: BASOPHILS # (AUTO) 0.05 x10^3/uL (0-0.1); BASOPHILS % (AUTO) 0 % (0-1); EOSINOPHILS # (AUTO) 0.28 x10^3/uL (0-0.4); EOSINOPHILS % (AUTO) 2 % (1-7); LYMPHOCYTES # (AUTO) 4.17 x10^3/uL (1-3.4); LYMPHOCYTES % (AUTO) 27 % (22-44); MD NO; MEAN CORPUSCULAR HEMOGLOBIN 29.4 pg (27.5-34.5); MEAN CORPUSCULAR HGB CONC 32.8 g/dL (33.2-36.2); MEAN CORPUSCULAR VOLUME 89.6 fL (81-97); MEAN PLATELET VOLUME 9.8 fL (7.4-10.4); MONOCYTES # (AUTO) 1.11 x10^3/uL (0.2-0.8); MONOCYTES % (AUTO) 7 % (2-9); NEUTROPHILS # (AUTO) 9.98 x10^3/uL (1.8-6.8); NEUTROPHILS % (AUTO) 64 % (42-75); PLATELET COUNT 282 x10^3/uL (130-400); RED BLOOD COUNT 4.29 x10^6/uL (4.38-5.82); RED CELL DISTRIBUTION WIDTH 16.2 % (9.4-14.8)
[2019-08-24 05:15] LABS: CHLORIDE 105 mmol/L (98-107)
[2019-08-24 05:26] LABS: ANION GAP 7 mmol/L (5-15); CALCIUM 8.4 mg/dL (8.5-10.1); CHOL/HDL RATIO 5.7; CHOLESTEROL, TOTAL 177 mg/dL (140-239); CREATININE 1.58 mg/dL (0.7-1.3); HDL CHOL % 18 % (26-37); HDL CHOLESTEROL (DIRECT) 31 mg/dL (40-60); TRIGLYCERIDES 892 mg/dL (50-200); TROPONIN I < 0.015 ng/mL (0.000-0.045)
[2019-08-24 06:59] VITALS: BP 136/74
[2019-08-24] MEDS: OMEPRAZOLE 20 MG CAPSULE.DR PO SCH ×2 (08:52→21:49)
[2019-08-24] MEDS: METOPROLOL SUCCINATE 100 MG TAB.ER.24H PO SCH (08:52)
[2019-08-24] MEDS: ASPIRIN 81 MG TABLET EC PO SCH (08:53)
[2019-08-24] MEDS: VENLAFAXINE 75 MG CAP ER PO SCH (08:53)
[2019-08-24] MEDS: CLOPIDOGREL 75 MG TABLET PO SCH (08:53)
[2019-08-24] MEDS: RANOLAZINE 500 MG TAB.ER.12H PO SCH ×2 (08:53→21:48)
[2019-08-24] MEDS ORDERED: IPRATROPIUM 0.5 MG/2.5 ML INHA NPPB SCH (09:00)
[2019-08-24] MEDS: ALBUTEROL/IPRATROPIUM 2.5MG/0.5MG, 3 ML HHN SCH ×3 (09:00→20:46)
[2019-08-24] MEDS ORDERED: BUDESONIDE 0.5 MG/2 ML INHA NPPB SCH (09:00)
[2019-08-24] MEDS: INSULIN LISPRO 100 UNITS/ML, PEN SQ-INSULIN SCH ×4 (09:12→22:04)
[2019-08-24 12:45] VITALS: BP 99/64
[2019-08-24 17:40] LABS: CULTURE INDICATED? NO; MICROSCOPIC NOT IND
[2019-08-24 19:52] VITALS: BP 116/71
[2019-08-24] MEDS ORDERED: INSULIN GLARGINE 100 UNITS/ML, PEN SQ-INSULIN SCH (21:00)
[2019-08-24] MEDS: DOXYCYCLINE 100MG TABLET PO SCH (21:49)
[2019-08-24] MEDS: ATORVASTATIN 40 MG TABLET PO SCH (21:49)
[2019-08-24] MEDS: ZOLPIDEM 5MG TABLET PO PRN (22:04)
[2019-08-24] MEDS: TRAZODONE 50MG TABLET PO PRN (22:04)
[2019-08-25 00:48] VITALS: BP 132/72
[2019-08-25] MEDS: ALBUTEROL/IPRATROPIUM 2.5MG/0.5MG, 3 ML HHN SCH ×4 (03:00→21:09)
[2019-08-25] MEDS: HEPARIN 5,000 UNITS/ML, 1ML SQ SCH ×3 (06:16→20:18)
[2019-08-25] MEDS ORDERED: REGADENOSON 0.4 MG/5 ML SYRINGE ONE (08:32)
[2019-08-25] MEDS: VENLAFAXINE 75 MG CAP ER PO SCH (09:07)
[2019-08-25] MEDS: CLOPIDOGREL 75 MG TABLET PO SCH (09:07)
[2019-08-25] MEDS: RANOLAZINE 500 MG TAB.ER.12H PO SCH ×2 (09:07→20:15)
[2019-08-25] MEDS: DOXYCYCLINE 100MG TABLET PO SCH ×2 (09:07→20:15)
[2019-08-25] MEDS: METOPROLOL SUCCINATE 100 MG TAB.ER.24H PO SCH (09:07)
[2019-08-25] MEDS: ASPIRIN 81 MG TABLET EC PO SCH (09:07)
[2019-08-25] MEDS: OMEPRAZOLE 20 MG CAPSULE.DR PO SCH ×2 (09:08→20:15)
[2019-08-25 09:09] VITALS: BP 108/66
[2019-08-25] MEDS: INSULIN LISPRO 100 UNITS/ML, PEN SQ-INSULIN SCH ×5 (09:09→20:18)
[2019-08-25 12:45] VITALS: BP 117/77
[2019-08-25 19:34] VITALS: BP 117/72
[2019-08-25] MEDS: ATORVASTATIN 80 MG TABLET PO SCH (20:15)
[2019-08-25] MEDS: TRAZODONE 50MG TABLET PO PRN (20:15)
[2019-08-25] MEDS: ZOLPIDEM 5MG TABLET PO PRN (20:16)
[2019-08-25] MEDS ORDERED: INSULIN GLARGINE 100 UNITS/ML, PEN SQ-INSULIN SCH (21:00)
[2019-08-26 01:19] VITALS: BP 124/72
[2019-08-26] MEDS: ALBUTEROL/IPRATROPIUM 2.5MG/0.5MG, 3 ML HHN SCH ×2 (03:00→09:45)
[2019-08-26] MEDS: HEPARIN 5,000 UNITS/ML, 1ML SQ SCH ×4 (04:59→20:12)
[2019-08-26 05:38] LABS: BASOPHILS # (AUTO) 0.07 x10^3/uL (0-0.1); BASOPHILS % (AUTO) 1 % (0-1); EOSINOPHILS # (AUTO) 0.27 x10^3/uL (0-0.4); EOSINOPHILS % (AUTO) 2 % (1-7); LYMPHOCYTES # (AUTO) 2.95 x10^3/uL (1-3.4); LYMPHOCYTES % (AUTO) 21 % (22-44); MD NO; MEAN CORPUSCULAR HEMOGLOBIN 29.3 pg (27.5-34.5); MEAN CORPUSCULAR HGB CONC 32.9 g/dL (33.2-36.2); MEAN CORPUSCULAR VOLUME 88.9 fL (81-97); MEAN PLATELET VOLUME 9.6 fL (7.4-10.4); MONOCYTES # (AUTO) 0.89 x10^3/uL (0.2-0.8); MONOCYTES % (AUTO) 6 % (2-9); NEUTROPHILS # (AUTO) 10.09 x10^3/uL (1.8-6.8); NEUTROPHILS % (AUTO) 71 % (42-75); PLATELET COUNT 287 x10^3/uL (130-400); RED BLOOD COUNT 4.42 x10^6/uL (4.38-5.82)
[2019-08-26 05:50] LABS: ALBUMIN 3.1 g/dL (3.4-5.0); ANION GAP 7 mmol/L (5-15); CHLORIDE 103 mmol/L (98-107)
[2019-08-26 05:53] LABS: ALANINE AMINOTRANSFERASE 33 U/L (12-78); ALKALINE PHOSPHATASE 91 U/L (45-117); BILIRUBIN,TOTAL 0.5 mg/dL (0.2-1.0); CREATININE 1.31 mg/dL (0.7-1.3); TOTAL PROTEIN 6.9 g/dL (6.4-8.2)
[2019-08-26 07:48] VITALS: BP 104/63
[2019-08-26] MEDS: RANOLAZINE 500 MG TAB.ER.12H PO SCH ×2 (08:50→20:10)
[2019-08-26] MEDS: DOXYCYCLINE 100MG TABLET PO SCH ×2 (08:50→20:11)
[2019-08-26] MEDS: VENLAFAXINE 75 MG CAP ER PO SCH (08:51)
[2019-08-26] MEDS: ASPIRIN 81 MG TABLET EC PO SCH (08:51)
[2019-08-26] MEDS: METOPROLOL SUCCINATE 100 MG TAB.ER.24H PO SCH (08:51)
[2019-08-26] MEDS: CLOPIDOGREL 75 MG TABLET PO SCH (08:51)
[2019-08-26] MEDS: OMEPRAZOLE 20 MG CAPSULE.DR PO SCH ×2 (08:51→20:10)
[2019-08-26] MEDS: INSULIN LISPRO 100 UNITS/ML, PEN SQ-INSULIN SCH ×3 (08:52→16:20)
[2019-08-26 12:47] VITALS: BP 127/73
[2019-08-26] MEDS ORDERED: ALBUTEROL/IPRATROPIUM 2.5MG/0.5MG, 3 ML HHN PRN (14:30)
[2019-08-26] MEDS ORDERED: INSULIN LISPRO 100 UNITS/ML, PEN SQ-INSULIN SCH ×2 (16:00)
[2019-08-26 20:03] VITALS: BP 119/72
[2019-08-26] MEDS: ZOLPIDEM 5MG TABLET PO PRN (20:09)
[2019-08-26] MEDS: TRAZODONE 50MG TABLET PO PRN (20:09)
[2019-08-26] MEDS: ATORVASTATIN 80 MG TABLET PO SCH (20:10)
[2019-08-26] MEDS ORDERED: INSULIN GLARGINE 100 UNITS/ML, PEN SQ-INSULIN SCH ×3 (21:00)
[2019-08-27 01:02] VITALS: BP 144/78
[2019-08-27] MEDS: HEPARIN 5,000 UNITS/ML, 1ML SQ SCH ×2 (04:14→13:10)
[2019-08-27 05:34] LABS: BASOPHILS # (AUTO) 0.04 x10^3/uL (0-0.1); BASOPHILS % (AUTO) 0 % (0-1); EOSINOPHILS # (AUTO) 0.34 x10^3/uL (0-0.4); EOSINOPHILS % (AUTO) 2 % (1-7); LYMPHOCYTES # (AUTO) 3.59 x10^3/uL (1-3.4); LYMPHOCYTES % (AUTO) 24 % (22-44); MD NO; MEAN CORPUSCULAR HEMOGLOBIN 29.1 pg (27.5-34.5); MEAN CORPUSCULAR HGB CONC 32.8 g/dL (33.2-36.2); MEAN CORPUSCULAR VOLUME 88.9 fL (81-97); MEAN PLATELET VOLUME 10.3 fL (7.4-10.4); MONOCYTES # (AUTO) 1.06 x10^3/uL (0.2-0.8); MONOCYTES % (AUTO) 7 % (2-9); NEUTROPHILS # (AUTO) 9.87 x10^3/uL (1.8-6.8); NEUTROPHILS % (AUTO) 66 % (42-75); PLATELET COUNT 295 x10^3/uL (130-400); RED BLOOD COUNT 4.35 x10^6/uL (4.38-5.82)
[2019-08-27 05:44] LABS: ANION GAP 7 mmol/L (5-15); CALCIUM 8.9 mg/dL (8.5-10.1); CHLORIDE 104 mmol/L (98-107); CREATININE 1.44 mg/dL (0.7-1.3)
[2019-08-27 07:05] VITALS: BP 118/72
[2019-08-27] MEDS: RANOLAZINE 500 MG TAB.ER.12H PO SCH (08:07)
[2019-08-27] MEDS: CLOPIDOGREL 75 MG TABLET PO SCH (08:07)
[2019-08-27] MEDS: VENLAFAXINE 75 MG CAP ER PO SCH (08:07)
[2019-08-27] MEDS: METOPROLOL SUCCINATE 100 MG TAB.ER.24H PO SCH (08:07)
[2019-08-27] MEDS: ASPIRIN 81 MG TABLET EC PO SCH (08:07)
[2019-08-27] MEDS: INSULIN LISPRO 100 UNITS/ML, PEN SQ-INSULIN SCH ×2 (08:08→11:42)
[2019-08-27] MEDS: DOXYCYCLINE 100MG TABLET PO SCH (08:08)
[2019-08-27] MEDS: OMEPRAZOLE 20 MG CAPSULE.DR PO SCH (08:08)
[2019-08-27 12:46] VITALS: BP 121/82
[2019-08-27] MEDS ORDERED: ROSU40TA PO (12:54)
[2019-08-27] MEDS ORDERED: INSU100I13 SQ-INSULIN (12:54)
[2019-08-27] MEDS ORDERED: INSU100I11 SQ-INSULIN (12:54)
[2019-08-27] MEDS ORDERED: INSULIN LISPRO 100 UNITS/ML, PEN SQ-INSULIN SCH (16:00)
[2019-08-27] MEDS ORDERED: INSULIN GLARGINE 100 UNITS/ML, PEN SQ-INSULIN SCH ×2 (21:00)
== END 2019-08-27 15:40 | disposition home health service (06) | DRG 637 ==
LOC: ED 18:25 → EDIP 18:46 → 5SO 20:47 → DCLOUNGE 08-27 15:17
PROVIDERS: ADMIT Family Medicine; ATTEND Internal Medicine
DX: E11.65 Type 2 diabetes mellitus with hyperglycemia (principal); N17.0 Acute kidney failure with tubular necrosis; I13.0 Hypertensive heart and chronic kidney disease with heart failure and stage 1 through stage 4 chronic kidney disease, or unspecified chronic kidney disease; I50.32 Chronic diastolic (congestive) heart failure; J96.10 Chronic respiratory failure, unspecified whether with hypoxia or hypercapnia; I95.9 Hypotension, unspecified; E86.1 Hypovolemia; D72.829 Elevated white blood cell count, unspecified; E11.22 Type 2 diabetes mellitus with diabetic chronic kidney disease; E66.9 Obesity, unspecified; E78.1 Pure hyperglyceridemia; G47.33 Obstructive sleep apnea (adult) (pediatric); I25.10 Atherosclerotic heart disease of native coronary artery without angina pectoris; J44.9 Chronic obstructive pulmonary disease, unspecified; N18.9 Chronic kidney disease, unspecified; E86.0 Dehydration; E11.21 Type 2 diabetes mellitus with diabetic nephropathy; Z68.34 Body mass index [BMI] 34.0-34.9, adult; Z87.820 Personal history of traumatic brain injury; Z87.891 Personal history of nicotine dependence; Z90.81 Acquired absence of spleen; Z95.5 Presence of coronary angioplasty implant and graft; Z72.89 Other problems related to lifestyle; Z79.4 Long term (current) use of insulin; I25.2 Old myocardial infarction; Z90.49 Acquired absence of other specified parts of digestive tract; Z80.42 Family history of malignant neoplasm of prostate; Z88.0 Allergy status to penicillin; Z88.2 Allergy status to sulfonamides; Z88.5 Allergy status to narcotic agent; Z91.013 Allergy to seafood
CPT/HCPCS: 36415; 71045; 71275; 78452; 80048; 80053; 80061; 81003; 82533; 82962; 83036; 83690; 83735; 83880; 84100; 84145; 84443; 84484; 85025; 87040; 93005; 93017; 93306; 93356; 94640; 99285; G0378; J1644; J2785; J7626; Q9967; A9502; C9898; J1815; J7030